=== PATIENT | female | born 1990 ===

== ENCOUNTER 2016-07-11 10:31 | Emergency (ER) | payer SELFPAY ==
[2016-07-11 10:31] VITALS: BMI 37.8
[2016-07-11 10:48] VITALS: BP 131/73; PULSE 71; RESP 18; TEMP 98; O2SAT 100
--- NOTE | 2016-07-11 11:37 | ED PDOC ---
HPI: Abdomen Time Seen by Provider: 07/11/16 11:02 Chief Complaint (Nursing): Abdominal Pain Chief Complaint (Provider): I had pain but i think its my period History Per: Patient History/Exam Limitations: no limitations Location Of Pain/Discomfort: RLQ, Suprapubic Quality Of Discomfort: Cramping Additional Complaint(s): 25yo female states had RLQ and suprapubic pain, now went to [facility] and realized shes bleeding hence she thinks its her period. She denies GI symptoms such as nausea vomiting or diarrhea. She refused further exam or history, states she just had a baby 3 months ago and now and believes pain related to her menses restarting. She states pain is similar to past menstrual cramps. Wants to be discharged. Past Medical History Reviewed: Historical Data, Nursing Documentation, Vital Signs Vital Signs: Last Vital Signs Temp 98 F 07/11/16 10:46 Pulse 71 07/11/16 10:46 Resp 18 07/11/16 10:46 BP 131/73 07/11/16 10:46 Pulse Ox 100 07/11/16 10:46 - Medical History PMH: Migraine - Family History Family History: States: Unknown Family Hx - Home Medications Home Medications: Ambulatory Orders Medication Instructions Recorded Vit Calc,Iron,Folic 1 tab PO DAILY 03/14/16 [ Vitamins] Docusate [Colace] 100 mg PO BID #30 cap 05/22/16 Ondansetron ODT [Zofran ODT] 4 mg PO Q8 PRN #12 odt 05/22/16 Sulfamethoxazole/Trimethoprim 1 each PO BID #20 tablet 05/22/16 [Bactrim Ds Tablet] oxyCODONE/Acetaminophen [Percocet 1 - 2 tab PO Q6 PRN #8 tab 05/22/16 5/325 mg Tab] - Allergies Allergies/Adverse Reactions: Allergies Allergy/AdvReac Type Severity Reaction Status Date / Time No Known Allergies Allergy Verified 07/11/16 10:46 Physical Exam - Reviewed Nursing Documentation Reviewed: Yes Vital Signs Reviewed: Yes - Physical Exam Appears: Positive for: Well, Non-toxic Neurologic/Psych: Positive for: Gait (normal), Other (refused further exam) - ECG O2 Sat by Pulse Oximetry: 100 Medical Decision Making Medical Decision Making: Pt refused further exam or testing after risks and benefits explained. Stated due to RLQ pain concern for appendicitis or ovarian torsion but she states she feels its her menses and does not want to stay in hospital any longer. Explained can return anytime and risks of delayed diagnosis of potential surgical emergency. Pt is AAOx3 and able to make decisions for self. Disposition - Clinical Impression Clinical Impression: Abdominal discomfort, Left against medical advice - Patient ED Disposition Is Patient to be Admitted: No Counseled Patient/Family Regarding: Studies Performed, Diagnosis, Need For Followup - Disposition Referrals: [facility] [Outside] Disposition: Routine/Home Disposition Time: 11:38 Condition: STABLE Additional Instructions: Return to ER for further testing at any time. Instructions: Acute Abdominal Pain (ED), Against Medical Advice (ED)
== END 2016-07-11 11:45 | disposition left against medical advice (07) ==
LOC: H.ER 10:31
DX: R10.9 Unspecified abdominal pain (principal)

== ENCOUNTER 2016-10-27 13:57 | Emergency (ER) | payer MEDICAID ==
[2016-10-27 13:58] VITALS: BMI 37.8
[2016-10-27 14:09] VITALS: BP 135/65; PULSE 72; RESP 16; TEMP 98.8; O2SAT 100
--- NOTE | 2016-10-27 14:29 | ED PDOC ---
HPI: Female Pain Time Seen by Provider: 10/27/16 14:10 Chief Complaint (Nursing): Female Genitourinary Chief Complaint (Provider): Vaginal spotting, , 8 weeks, LMP 08/24/16 History Per: Patient History/Exam Limitations: no limitations Onset/Duration Of Symptoms: Days Current Symptoms Are (Timing): Still Present Quality Of Discomfort: Cramping Associated Symptoms: denies: Fever, Chills, Nausea, Vomiting, Loss Of Appetite, Constipation, Urinary Symptoms Alleviating Factors: None Additional Complaint(s): Pt has not yet seen OB. Pt has a 6 month old and is not currently breast feeding. Pt states she is not yet taking vitamins. Abnormal Vaginal Bleeding: Yes Last Menstral Period: 08/24/16 : 2 Para: 1 Miscarriage: 0 Past Medical History Reviewed: Historical Data, Nursing Documentation, Vital Signs Vital Signs: Last Vital Signs Temp 98.8 F 10/27/16 14:05 Pulse 72 10/27/16 14:05 Resp 16 10/27/16 14:05 BP 135/65 10/27/16 14:05 Pulse Ox 100 10/27/16 14:05 - Medical History PMH: Migraine - Surgical History Surgical History: No Surg Hx - Family History Family History: States: Unknown Family Hx - Living Arrangements Living Arrangements: With Family - Social History Current smoker - smoking cessation education provided: No Alcohol: None Drugs: Denies - Home Medications Home Medications: Ambulatory Orders Medication Instructions Recorded Vit Calc,Iron,Folic 1 tab PO DAILY 03/14/16 [ Vitamins] Docusate [Colace] 100 mg PO BID #30 cap 05/22/16 Ondansetron ODT [Zofran ODT] 4 mg PO Q8 PRN #12 odt 05/22/16 Sulfamethoxazole/Trimethoprim 1 each PO BID #20 tablet 05/22/16 [Bactrim Ds Tablet] oxyCODONE/Acetaminophen [Percocet 1 - 2 tab PO Q6 PRN #8 tab 05/22/16 5/325 mg Tab] - Allergies Allergies/Adverse Reactions: Allergies Allergy/AdvReac Type Severity Reaction Status Date / Time No Known Allergies Allergy Verified 07/11/16 10:46 Review of Systems ROS Statement: Except As Marked, All Systems Reviewed And Found Negative Genitourinary Female: Positive for: Vaginal Bleeding, Pelvic Pain - Laboratory Results Result Diagrams: 10/27/16 14:40 10/27/16 14:40 - ECG O2 Sat by Pulse Oximetry: 100 Disposition - Clinical Impression Clinical Impression: Vaginal bleeding in - Patient ED Disposition Is Patient to be Admitted: No - Disposition [facility] Disposition: Routine/Home Disposition Time: 16:29 Condition: GOOD Additional Instructions: Please begin vitamins with DHA and folic acid. Instructions: First Trimester Vaginal Bleed (ED)
[2016-10-27 14:51] LABS: HEMOGLOBIN 12.8 g/dL (12.0-16.0); MEAN CELL VOLUME 83.6 fl (81.0-99.0); MEAN CORPUSCULAR HEMOGLOBIN 27.5 pg (27.0-31.0); MEAN CORPUSCULAR HGB CONC 32.9 g/dL (33.0-37.0); RBC 4.67 Mil/uL (3.80-5.20); RED CELL DISTRIBUTION WIDTH 14.3 % (11.5-14.5); WHITE BLOOD COUNT 8.8 K/uL (4.8-10.8)
[2016-10-27 15:06] LABS: ALB/GLOB RATIO 1.2 (1.0-2.1); ALBUMIN 4.1 g/dL (3.5-5.0); ALT/SGPT 37 U/L (9-52); AST/SGOT 24 U/L (14-36); BLOOD UREA NITROGEN 9 mg/dl (7-17); CALCIUM 9.4 mg/dL (8.4-10.2); GFR AFRICAN-AMERICAN > 60; GFR NON-AFRICAN AMERICAN > 60
--- NOTE | 2016-10-27 15:50 | US ---
PROCEDURE: HISTORY: spotting, pelvic pain, 8 weeks COMPARISON: TECHNIQUE: FINDINGS: The uterus measures 11.0 x 6.0 x 8.0 centimeters. There is an intrauterine sac with a pole measuring 1.5 cm corresponding to 7 weeks and 6 days gestational age. heart motion is observed. The right ovary was not visualized. Left ovary is normal. IMPRESSION: As above.
== END 2016-10-27 16:35 | disposition home or self-care (01) ==
LOC: H.ER 13:57
DX: O46.90 Antepartum hemorrhage, unspecified, unspecified trimester (principal); O26.891 Other specified pregnancy related conditions, first trimester

== ENCOUNTER 2017-01-28 01:30 | Emergency (ER) | payer OTHER ==
[2017-01-28 08:30] LABS: RBC URINE 2 /hpf (0-3); URINE BILIRUBIN NEGATIVE (NEGATIVE); URINE BLOOD NEGATIVE (NEGATIVE); URINE CALCIUM OXALATE CRYSTALS OCC /hpf (<OCC); URINE COLOR YELLOW (YELLOW); URINE GLUCOSE (UA) NEG (Normal); URINE KETONE NEGATIVE (NEGATIVE); URINE LEUKOCYTE ESTERASE NEG Leu/uL (Negative); URINE PROTEIN NEGATIVE (NEGATIVE); URINE UROBILINOGEN 0.2-1.0 mg/dL (0.2-1.0); WBC URINE 1 /hpf (0-5)
[2017-01-28 13:10] VITALS: BP 121/68; PULSE 73; RESP 18; TEMP 98; O2SAT 100
== END 2017-01-28 04:00 | disposition home or self-care (01) ==
LOC: H.EROB2 01:30
DX: O26.92 Pregnancy related conditions, unspecified, second trimester (principal); R10.2 Pelvic and perineal pain; Z3A.20 20 weeks gestation of pregnancy